=== PATIENT | female | born 1955 | race Caucasian/White ===

== ENCOUNTER 2017-07-25 08:55 | Inpatient (IN) | payer OTHER ==
[2017-07-25 10:09] LABS: BASO % 0 % (0-3); EOS % 0 % (0-3); HEMATOCRIT 41.2 % (36.0-47.0); HEMOGLOBIN 13.3 g/dL (12.0-15.5); LYMPH # 1.1 x10^3/uL (1.0-4.8); LYMPH % 9 % (24-48); MEAN CORPUSCULAR HEMOGLOBIN 30 pg (25-35); MEAN CORPUSCULAR HGB CONC 32 g/dL (31-37); MEAN CORPUSCULAR VOLUME 92 fL (79-100); MONO # 0.5 x10^3/uL (0.0-1.1); MONO % 4 % (0-9); NEUT # 10.9 x10^3uL (1.8-7.7); NEUT % 87 % (31-73); PLATELET COUNT 228 x10^3/uL (140-400); RED BLOOD COUNT 4.48 x10^6/uL (3.50-5.40); RED CELL DISTRIBUTION WIDTH 13.6 % (11.5-14.5); WHITE BLOOD COUNT 12.6 x10^3/uL (4.0-11.0)
[2017-07-25 10:10] LABS: BILIRUBIN,URINE NEGATIVE (NEG); COLOR,URINE ORANGE; GLUCOSE,URINE NEGATIVE (NEG); NITRITE,URINE POSITIVE (NEG); PH,URINE 6.5; PROTEIN,URINE NEGATIVE (NEG-TRACE)
[2017-07-25 10:12] LABS: ADD MAN DIFF? YES
[2017-07-25 10:17] LABS: CLARITY,URINE HAZY
[2017-07-25 10:19] LABS: BACTERIA,URINE MANY /HPF (0-FEW); SQUAMOUS EPITHELIAL CELL,UR MOD /LPF
[2017-07-25 10:20] LABS: WBC,URINE >40 /HPF (0-4)
[2017-07-25] MEDS: IV NORMAL SALINE 1000ML BAG 1,000 ML IV ×3 (10:23→20:59)
[2017-07-25] MEDS: ONDANSETRON PF 4 MG/2 ML VIAL. IV ×2 (10:23→20:58)
[2017-07-25] MEDS: KETOROLAC 30 MG/ML INJ. IV (10:25)
[2017-07-25] MEDS: MORPHINE SULFATE 4 MG/ML DISP.SYRIN. IV/SQ (10:26)
[2017-07-25] MEDS: 0.9 % SODIUM CHLORIDE 10 ML DISP.SYRIN. IV (10:28)
[2017-07-25 10:56] LABS: % BANDS 3 % (0-9); % LYMPHS 7 % (24-48); % MONOS 3 % (0-10); % SEGS 87 % (35-66); PLT ESTIMATE ADEQUATE (ADEQUATE)
[2017-07-25 11:08] LABS: TROPONINI < 0.017 ng/mL (0.000-0.055)
[2017-07-25 11:12] LABS: CKMB MASS < 0.5 ng/mL (0.0-3.6); CREATINE KINASE 86 U/L (26-192)
[2017-07-25 11:21] LABS: ANION GAP 9 (6-14); BLOOD UREA NITROGEN 14 mg/dL (7-20); CALCIUM 8.3 mg/dL (8.5-10.1); CARBON DIOXIDE 28 mmol/L (21-32); CHLORIDE 102 mmol/L (98-107); CREATININE 0.9 mg/dL (0.6-1.0); GFR 63.2; GLUCOSE 118 mg/dL (70-99); POTASSIUM 4.5 mmol/L (3.5-5.1); SODIUM 139 mmol/L (136-145)
[2017-07-25 11:27] LABS: ALBUMIN 3.5 g/dL (3.4-5.0); ALK PHOS 84 U/L (46-116); ALT (SGPT) 24 U/L (14-59); AST (SGOT) 16 U/L (15-37); DIRECT BILIRUBIN 0.2 mg/dL (0.0-0.2); LIPASE 55 U/L (73-393); TOTAL BILIRUBIN 0.8 mg/dL (0.2-1.0); TOTAL PROTEIN 7.2 g/dL (6.4-8.2)
[2017-07-25] MEDS: ACETAMINOPHEN 325 MG TABLET. PO ×2 (14:16→20:58)
[2017-07-25] MEDS ORDERED: INFLUENZA VAX SCREEN BY RX. MC (15:00)
[2017-07-25] MEDS: FLU VACC QS2017-18 (36MOS+)/PF 0.5 ML SYRINGE. VAX IM (16:00)
[2017-07-25] MEDS: MORPHINE SULFATE 4 MG/ML DISP.SYRIN. IV (16:19)
[2017-07-25] MEDS: TAMSULOSIN 0.4 MG CAP.ER.24H. PO (20:58)
[2017-07-26] MEDS: IV NORMAL SALINE 1000ML BAG 1,000 ML IV (03:05)
[2017-07-26] MEDS: ACETAMINOPHEN 325 MG TABLET. PO (07:06)
[2017-07-26] MEDS: ONDANSETRON PF 4 MG/2 ML VIAL. IV (07:06)
[2017-07-26] MEDS ORDERED: fentaNYL PF VIAL 100 MCG/2 ML VIAL ×3 (10:15→10:54)
[2017-07-26] MEDS ORDERED: HYDROmorphone 2 MG/ML VIAL IV (10:30)
[2017-07-26] MEDS ORDERED: MORPHINE SULFATE 2 MG/ML DISP.SYRIN. IV (10:30)
[2017-07-26] MEDS ORDERED: LIDOCAINE 1% PF 2 ML VIAL. ID (10:30)
[2017-07-26] MEDS ORDERED: ONDANSETRON PF 4 MG/2 ML VIAL. IV (10:30)
[2017-07-26] MEDS ORDERED: fentaNYL PF VIAL 100 MCG/2 ML VIAL IV (10:30)
[2017-07-26] MEDS ORDERED: PROCHLORPERAZINE 10 MG/2 ML VIAL. IV (10:30)
[2017-07-26] MEDS: fentaNYL PF VIAL 100 MCG/2 ML VIAL IV (10:48)
[2017-07-26] MEDS: IV RINGERS,LACTATED 1000ML 1,000 ML IV (10:52)
[2017-07-26] MEDS ORDERED: SUCCINYLCHOLINE 200 MG/10 ML VIAL. (10:54)
[2017-07-26] MEDS ORDERED: ONDANSETRON PF 4 MG/2 ML VIAL. (10:55)
[2017-07-26] MEDS ORDERED: PROPOFOL 20 ML IV (10:55)
[2017-07-26] MEDS ORDERED: DEXAMETHASONE SOD PHOS 20 MG/5 ML VIAL. (10:55)
[2017-07-26] MEDS ORDERED: LIDOCAINE 2% JELLY 6ML IN APPLICATOR. (10:56)
[2017-07-26] MEDS ORDERED: ePHEDrine PF IN SALINE 50 MG/5 ML DISP.SYRIN IV (11:26)
[2017-07-26] MEDS ORDERED: SEVOFLURANE 16 TO 30 MINUTES. IH (11:48)
[2017-07-26] MEDS: IOHEXOL 300 MG/ML 100ML VIAL. (12:55)
[2017-07-26] MEDS ORDERED: CEFEPIME HCL 1 GM in IV DEXTROSE 5% 50 ML IV (16:00)
[2017-07-26] MEDS: CEFEPIME HCL IV Push 1 GM VIAL. IVP ×2 (16:00→21:46)
[2017-07-26] MEDS: TAMSULOSIN 0.4 MG CAP.ER.24H. PO (21:46)
[2017-07-26] MEDS: NAPROXEN 500 MG TABLET PO (21:47)
[2017-07-26] MEDS: LACTOBACILLUS RHAMNOSUS GG 1 CAPSULE. PO (21:49)
[2017-07-27 04:36] LABS: ADD MAN DIFF? NO
[2017-07-27 04:47] LABS: BASO % 0 % (0-3); EOS % 0 % (0-3); HEMATOCRIT 34.8 % (36.0-47.0); HEMOGLOBIN 11.3 g/dL (12.0-15.5); LYMPH # 1.3 x10^3/uL (1.0-4.8); LYMPH % 14 % (24-48); MEAN CORPUSCULAR HEMOGLOBIN 30 pg (25-35); MEAN CORPUSCULAR HGB CONC 33 g/dL (31-37); MEAN CORPUSCULAR VOLUME 93 fL (79-100); MONO # 0.7 x10^3/uL (0.0-1.1); MONO % 8 % (0-9); NEUT # 7.4 x10^3uL (1.8-7.7); NEUT % 79 % (31-73); PLATELET COUNT 159 x10^3/uL (140-400); RED BLOOD COUNT 3.76 x10^6/uL (3.50-5.40); RED CELL DISTRIBUTION WIDTH 13.3 % (11.5-14.5); WHITE BLOOD COUNT 9.4 x10^3/uL (4.0-11.0)
[2017-07-27 05:04] LABS: ANION GAP 8 (6-14); BLOOD UREA NITROGEN 13 mg/dL (7-20); CALCIUM 8.4 mg/dL (8.5-10.1); CARBON DIOXIDE 26 mmol/L (21-32); CHLORIDE 105 mmol/L (98-107); CREATININE 0.8 mg/dL (0.6-1.0); GFR 72.4; GLUCOSE 143 mg/dL (70-99); POTASSIUM 3.9 mmol/L (3.5-5.1); SODIUM 139 mmol/L (136-145)
[2017-07-27] MEDS: CEFEPIME HCL IV Push 1 GM VIAL. IVP ×2 (06:33→13:12)
[2017-07-27] MEDS: ACETAMINOPHEN 325 MG TABLET. PO (08:52)
[2017-07-27] MEDS: LACTOBACILLUS RHAMNOSUS GG 1 CAPSULE. PO ×2 (08:52→21:43)
[2017-07-27] MEDS: OXYBUTYNIN CHLORIDE 5 MG TABLET PO (13:19)
[2017-07-27] MEDS: TAMSULOSIN 0.4 MG CAP.ER.24H. PO (21:44)
[2017-07-28] MEDS: ACETAMINOPHEN 325 MG TABLET. PO ×2 (02:19→14:32)
[2017-07-28] MEDS: LACTOBACILLUS RHAMNOSUS GG 1 CAPSULE. PO ×2 (08:16→20:38)
[2017-07-28] MEDS: ONDANSETRON ODT 4 MG TAB.RAPDIS. PO (08:27)
[2017-07-28] MEDS: OXYBUTYNIN CHLORIDE 5 MG TABLET PO (14:32)
[2017-07-28] MEDS: SERTRALINE 50 MG TABLET. PO (20:38)
[2017-07-28] MEDS: TAMSULOSIN 0.4 MG CAP.ER.24H. PO (20:38)
[2017-07-29] MEDS: ACETAMINOPHEN 325 MG TABLET. PO (06:03)
[2017-07-29] MEDS: LACTOBACILLUS RHAMNOSUS GG 1 CAPSULE. PO (09:34)
== END 2017-07-29 10:23 | disposition home or self-care (01) | DRG 872 ==
LOC: ER 08:55 → 6 SOUTH 11:30
PROC: 0T768DZ Dilation of Right Ureter with Intraluminal Device, Via Natural or Artificial Opening Endoscopic (ICD-10-PCS; principal; 2017-07-26 11:00)
PROC: BT161ZZ Fluoroscopy of Right Ureter using Low Osmolar Contrast (ICD-10-PCS; 2017-07-26 11:12)
DX: A41.89 Other specified sepsis (principal); E88.81 Metabolic syndrome and other insulin resistance; K76.0 Fatty (change of) liver, not elsewhere classified; E66.01 Morbid (severe) obesity due to excess calories; N13.6 Pyonephrosis; N39.0 Urinary tract infection, site not specified; Z68.41 Body mass index [BMI] 40.0-44.9, adult; I10 Essential (primary) hypertension; N13.9 Obstructive and reflux uropathy, unspecified; M19.90 Unspecified osteoarthritis, unspecified site; N28.82 Megaloureter; B96.1 Klebsiella pneumoniae [K. pneumoniae] as the cause of diseases classified elsewhere; J02.9 Acute pharyngitis, unspecified; M54.31 Sciatica, right side; K80.20 Calculus of gallbladder without cholecystitis without obstruction; K21.9 Gastro-esophageal reflux disease without esophagitis; E89.0 Postprocedural hypothyroidism; K57.30 Diverticulosis of large intestine without perforation or abscess without bleeding; Z87.891 Personal history of nicotine dependence; Z87.01 Personal history of pneumonia (recurrent)
CPT/HCPCS: 36415; 74176; 76000; 80048; 80076; 81001; 82553; 83605; 83690; 84484; 85007; 85025; 87040; 87086; 87186; 87205; 93005; 96361; 96374; 96375; 99285; 99285-25; C1769; C2617; J0330; J0690; J0692; J1100; J1885; J1956; J2270; J2405; J2704; J3010; J7030; J7120; Q0162; Q9967

== ENCOUNTER 2017-08-11 20:18 | Emergency (ER) | payer OTHER ==
[2017-08-11 20:49] LABS: BILIRUBIN,URINE NEGATIVE (NEG); CLARITY,URINE CLEAR; GLUCOSE,URINE NEGATIVE (NEG); NITRITE,URINE NEGATIVE (NEG); PROTEIN,URINE >=300 mg/dL (NEG-TRACE); UROBILINOGEN,URINE 0.2 mg/dL (0.2 mg/dL)
[2017-08-11 20:55] LABS: COLOR,URINE YELLOW
[2017-08-11 20:59] LABS: BACTERIA,URINE FEW /HPF (0-FEW); RBC,URINE >40 /HPF (0-2); SQUAMOUS EPITHELIAL CELL,UR FEW /LPF; WBC,URINE RARE /HPF (0-4)
[2017-08-11 21:03] LABS: ADD MAN DIFF? NO
[2017-08-11 21:07] LABS: BASO # 0.1 x10^3/uL (0.0-0.2); BASO % 1 % (0-3); EOS # 0.1 x10^3/uL (0.0-0.7); EOS % 1 % (0-3); HEMATOCRIT 38.7 % (36.0-47.0); HEMOGLOBIN 12.8 g/dL (12.0-15.5); LYMPH # 2.1 x10^3/uL (1.0-4.8); LYMPH % 20 % (24-48); MEAN CORPUSCULAR HEMOGLOBIN 30 pg (25-35); MEAN CORPUSCULAR HGB CONC 33 g/dL (31-37); MEAN CORPUSCULAR VOLUME 91 fL (79-100); MONO # 0.5 x10^3/uL (0.0-1.1); MONO % 4 % (0-9); NEUT # 7.6 x10^3uL (1.8-7.7); NEUT % 73 % (31-73); PLATELET COUNT 254 x10^3/uL (140-400); RED BLOOD COUNT 4.26 x10^6/uL (3.50-5.40); WHITE BLOOD COUNT 10.4 x10^3/uL (4.0-11.0)
[2017-08-11 21:18] LABS: ANION GAP 10 (6-14); BLOOD UREA NITROGEN 21 mg/dL (7-20); BUN/CREATININE RATIO 21 (6-20); CALCIUM 9.4 mg/dL (8.5-10.1); CARBON DIOXIDE 29 mmol/L (21-32); CHLORIDE 103 mmol/L (98-107); GLUCOSE 176 mg/dL (70-99); POTASSIUM 4.5 mmol/L (3.5-5.1); SODIUM 142 mmol/L (136-145)
[2017-08-11 21:23] LABS: ALBUMIN 3.6 g/dL (3.4-5.0); ALBUMIN/GLOBULIN RATIO 0.9 (1.0-1.7); ALK PHOS 92 U/L (46-116); ALT (SGPT) 23 U/L (14-59); AST (SGOT) 16 U/L (15-37); LIPASE 64 U/L (73-393); TOTAL BILIRUBIN 0.3 mg/dL (0.2-1.0); TOTAL PROTEIN 7.4 g/dL (6.4-8.2)
[2017-08-11] MEDS: ONDANSETRON PF 4 MG/2 ML VIAL. IV ×2 (22:09)
[2017-08-11] MEDS: IV NORMAL SALINE 1000ML BAG 1,000 ML IV ×2 (22:09)
[2017-08-11] MEDS: HYDROmorphone 2 MG/ML VIAL IV/SQ ×2 (22:10)
== END 2017-08-11 23:30 | disposition home or self-care (01) ==
LOC: ER 20:18
DX: R10.9 Unspecified abdominal pain (principal); I10 Essential (primary) hypertension; Z87.442 Personal history of urinary calculi; Z88.8 Allergy status to other drugs, medicaments and biological substances
CPT/HCPCS: 36415; 74176; 80053; 81001; 83690; 85025; 87086; 96361; 96374; 96375; 99285-25; J1170; J2405; J7030

== ENCOUNTER 2017-08-15 14:21 | Day surgery (SDC) | payer OTHER ==
[~2017-08-15 14:21] MED LIST: HYDROmorphone 2 MG/ML VIAL IV; LIDOCAINE 1% PF 2 ML VIAL. ID; LIDOCAINE 2% JELLY 6ML IN APPLICATOR.; MORPHINE SULFATE 2 MG/ML DISP.SYRIN. IV; ONDANSETRON PF 4 MG/2 ML VIAL. IV; ceFAZolin 2GM PREMIX 2 GM/50 ML BAG IV; fentaNYL PF VIAL 100 MCG/2 ML VIAL IV
[2017-08-15] MEDS: IV RINGERS,LACTATED 1000ML 1,000 ML IV ×4 (14:47→18:27)
[2017-08-15] MEDS ORDERED: PROPOFOL 20 ML IV ×2 (15:03)
[2017-08-15] MEDS ORDERED: LIDOCAINE 2% PF Vial for OR 5 ML VIAL. ×2 (15:03)
[2017-08-15] MEDS ORDERED: ONDANSETRON PF 4 MG/2 ML VIAL. ×2 (15:03)
[2017-08-15] MEDS ORDERED: MIDAZOLAM HCL/PF 2 MG/2 ML VIAL. ×2 (15:03)
[2017-08-15] MEDS ORDERED: DEXAMETHASONE SOD PHOS 20 MG/5 ML VIAL. ×2 (15:03)
[2017-08-15] MEDS ORDERED: fentaNYL PF VIAL 100 MCG/2 ML VIAL ×2 (16:36)
[2017-08-15] MEDS ORDERED: ePHEDrine PF IN SALINE 50 MG/5 ML DISP.SYRIN IV (16:42)
[2017-08-15] MEDS: IOHEXOL 300 MG/ML 100ML VIAL. ×2 (16:45)
[2017-08-15] MEDS: PROCHLORPERAZINE 10 MG/2 ML VIAL. IV ×4 (17:41→18:28)
[2017-08-15] MEDS: fentaNYL PF VIAL 100 MCG/2 ML VIAL IV ×8 (17:42→19:23)
[2017-08-15] MEDS: KETOROLAC 30 MG/ML INJ. IV ×2 (18:28)
[2017-08-15] MEDS: HYDROcodone/APAP 5/325MG 1 TAB TABLET PO ×2 (19:00)
[2017-08-15] MEDS ORDERED: HYDROcodone/APAP 5/325MG 1 TAB TABLET ×2 (19:01)
[2017-08-29 10:25] LABS: CA OXALATE MONOHYDR 95 % (.); COLOR Brown (.); STONE WEIGHT 44.6 mg (.)
== END 2017-08-15 20:05 | disposition home or self-care (01) ==
LOC: SURG 14:21
DX: N20.1 Calculus of ureter (principal); F32.9 Major depressive disorder, single episode, unspecified; Z98.890 Other specified postprocedural states; Z87.39 Personal history of other diseases of the musculoskeletal system and connective tissue; Z86.39 Personal history of other endocrine, nutritional and metabolic disease; Z86.69 Personal history of other diseases of the nervous system and sense organs; Z72.89 Other problems related to lifestyle; Z87.891 Personal history of nicotine dependence; Z91.048 Other nonmedicinal substance allergy status
CPT/HCPCS: 52353; 76000; 82365; C1769; J0690; J0780; J1100; J1885; J2250; J2405; J2704; J3010; Q9967

== ENCOUNTER 2017-08-19 11:12 | Inpatient (IN) | payer OTHER ==
[2017-08-19 12:05] LABS: BILIRUBIN,URINE NEGATIVE (NEG); CLARITY,URINE CLEAR; COLOR,URINE YELLOW; GLUCOSE,URINE NEGATIVE (NEG); NITRITE,URINE NEGATIVE (NEG); PROTEIN,URINE NEGATIVE (NEG-TRACE); UROBILINOGEN,URINE 0.2 mg/dL (0.2 mg/dL)
[2017-08-19] MEDS: ONDANSETRON PF 4 MG/2 ML VIAL. IV ×2 (12:10→16:41)
[2017-08-19] MEDS: IV NORMAL SALINE 1000ML BAG 1,000 ML IV (12:11)
[2017-08-19 12:14] LABS: ADD MAN DIFF? NO
[2017-08-19] MEDS: MORPHINE SULFATE 4 MG/ML DISP.SYRIN. IV/SQ ×2 (12:15→13:55)
[2017-08-19 12:21] LABS: BASO % 1 % (0-3); EOS # 0.1 x10^3/uL (0.0-0.7); EOS % 1 % (0-3); HEMATOCRIT 40.7 % (36.0-47.0); HEMOGLOBIN 13.8 g/dL (12.0-15.5); LYMPH # 1.7 x10^3/uL (1.0-4.8); LYMPH % 22 % (24-48); MEAN CORPUSCULAR HEMOGLOBIN 31 pg (25-35); MEAN CORPUSCULAR HGB CONC 34 g/dL (31-37); MEAN CORPUSCULAR VOLUME 90 fL (79-100); MONO # 0.5 x10^3/uL (0.0-1.1); MONO % 7 % (0-9); NEUT # 5.6 x10^3uL (1.8-7.7); NEUT % 70 % (31-73); PLATELET COUNT 249 x10^3/uL (140-400); RED BLOOD COUNT 4.51 x10^6/uL (3.50-5.40); RED CELL DISTRIBUTION WIDTH 13.2 % (11.5-14.5)
[2017-08-19 12:22] LABS: BACTERIA,URINE 0 /HPF (0-FEW); RBC,URINE >40 /HPF (0-2); SQUAMOUS EPITHELIAL CELL,UR MOD /LPF
[2017-08-19 12:29] LABS: ANION GAP 7 (6-14); BLOOD UREA NITROGEN 27 mg/dL (7-20); CALCIUM 9.6 mg/dL (8.5-10.1); CARBON DIOXIDE 30 mmol/L (21-32); CHLORIDE 102 mmol/L (98-107); CREATININE 1.3 mg/dL (0.6-1.0); GFR 41.4; GLUCOSE 138 mg/dL (70-99); POTASSIUM 4.4 mmol/L (3.5-5.1); SODIUM 139 mmol/L (136-145)
[2017-08-19] MEDS ORDERED: HYDROmorphone 2 MG/ML VIAL (12:52)
[2017-08-19] MEDS: HYDROmorphone 2 MG/ML VIAL IVP (12:57)
[2017-08-19] MEDS: MORPHINE SULFATE 4 MG/ML DISP.SYRIN. IV (22:49)
[2017-08-20] MEDS: ACETAMINOPHEN 325 MG TABLET. PO ×2 (04:33→11:24)
[2017-08-20 04:56] LABS: ADD MAN DIFF? NO
[2017-08-20 05:01] LABS: BASO % 1 % (0-3); EOS # 0.2 x10^3/uL (0.0-0.7); EOS % 3 % (0-3); HEMATOCRIT 39.7 % (36.0-47.0); HEMOGLOBIN 13.3 g/dL (12.0-15.5); LYMPH # 1.9 x10^3/uL (1.0-4.8); LYMPH % 29 % (24-48); MEAN CORPUSCULAR HEMOGLOBIN 30 pg (25-35); MEAN CORPUSCULAR HGB CONC 33 g/dL (31-37); MEAN CORPUSCULAR VOLUME 91 fL (79-100); MONO # 0.5 x10^3/uL (0.0-1.1); MONO % 7 % (0-9); NEUT % 61 % (31-73); PLATELET COUNT 239 x10^3/uL (140-400); RED BLOOD COUNT 4.39 x10^6/uL (3.50-5.40); RED CELL DISTRIBUTION WIDTH 13.6 % (11.5-14.5); WHITE BLOOD COUNT 6.5 x10^3/uL (4.0-11.0)
[2017-08-20 05:52] LABS: ANION GAP 9 (6-14); BLOOD UREA NITROGEN 16 mg/dL (7-20); CALCIUM 9.3 mg/dL (8.5-10.1); CARBON DIOXIDE 29 mmol/L (21-32); CHLORIDE 103 mmol/L (98-107); CREATININE 0.9 mg/dL (0.6-1.0); GFR 63.2; GLUCOSE 96 mg/dL (70-99); POTASSIUM 4.2 mmol/L (3.5-5.1); SODIUM 141 mmol/L (136-145)
[2017-08-20] MEDS: TAMSULOSIN 0.4 MG CAP.ER.24H. PO (11:35)
[2017-08-20] MEDS: ONDANSETRON PF 4 MG/2 ML VIAL. IV (16:36)
[2017-08-20] MEDS: LACTOBACILLUS RHAMNOSUS GG 1 CAPSULE. PO (21:18)
[2017-08-20] MEDS: SERTRALINE 50 MG TABLET. PO (21:18)
[2017-08-21] MEDS: ACETAMINOPHEN 325 MG TABLET. PO ×2 (00:25→07:16)
[2017-08-21 04:34] LABS: ADD MAN DIFF? NO
[2017-08-21 04:40] LABS: BASO % 1 % (0-3); EOS # 0.1 x10^3/uL (0.0-0.7); EOS % 2 % (0-3); HEMATOCRIT 39.7 % (36.0-47.0); HEMOGLOBIN 13.4 g/dL (12.0-15.5); LYMPH # 2.3 x10^3/uL (1.0-4.8); LYMPH % 33 % (24-48); MEAN CORPUSCULAR HEMOGLOBIN 30 pg (25-35); MEAN CORPUSCULAR HGB CONC 34 g/dL (31-37); MEAN CORPUSCULAR VOLUME 90 fL (79-100); MONO # 0.5 x10^3/uL (0.0-1.1); MONO % 7 % (0-9); NEUT % 58 % (31-73); PLATELET COUNT 248 x10^3/uL (140-400); RED BLOOD COUNT 4.43 x10^6/uL (3.50-5.40); RED CELL DISTRIBUTION WIDTH 13.8 % (11.5-14.5)
[2017-08-21 05:00] LABS: ANION GAP 9 (6-14); BLOOD UREA NITROGEN 12 mg/dL (7-20); CALCIUM 9.1 mg/dL (8.5-10.1); CARBON DIOXIDE 28 mmol/L (21-32); CHLORIDE 102 mmol/L (98-107); GLUCOSE 96 mg/dL (70-99); POTASSIUM 3.8 mmol/L (3.5-5.1); SODIUM 139 mmol/L (136-145)
[2017-08-21] MEDS: LACTOBACILLUS RHAMNOSUS GG 1 CAPSULE. PO (08:46)
[2017-08-21] MEDS: TAMSULOSIN 0.4 MG CAP.ER.24H. PO (08:46)
[2017-08-21] MEDS: POLYETHYLENE GLYCOL 3350 17 GM PACKET. PO (12:36)
== END 2017-08-21 15:30 | disposition home or self-care (01) | DRG 694 ==
LOC: ER 11:12 → 6 SOUTH 13:00
DX: N13.30 Unspecified hydronephrosis (principal); Z68.41 Body mass index [BMI] 40.0-44.9, adult; E03.9 Hypothyroidism, unspecified; R79.89 Other specified abnormal findings of blood chemistry; K21.9 Gastro-esophageal reflux disease without esophagitis; K59.00 Constipation, unspecified; Z87.442 Personal history of urinary calculi; Z87.891 Personal history of nicotine dependence; E66.9 Obesity, unspecified; F32.9 Major depressive disorder, single episode, unspecified; M19.90 Unspecified osteoarthritis, unspecified site; Z88.8 Allergy status to other drugs, medicaments and biological substances
CPT/HCPCS: 36415; 74018; 76770; 80048; 81001; 85025; 87086; 96365; 96375; 96376; 99285-25; J0690; J1170; J2270; J2405; J7030

== ENCOUNTER → 2021-04-06 | Outpatient (CLI) | payer MEDICARE, OTHER ==
[2020-06-01 11:07] VITALS: BP 125/68
[~2021-04-06] MED LIST changes: +ACET500T68 PO; +DIPH25TA64 PO; +DOCU-148 PO; +HYDR-2761 PO; -HYDROmorphone 2 MG/ML VIAL IV; -LIDOCAINE 1% PF 2 ML VIAL. ID; -LIDOCAINE 2% JELLY 6ML IN APPLICATOR.; -MORPHINE SULFATE 2 MG/ML DISP.SYRIN. IV; +OMEG1CAP43 PO; +OMEP20CA16 PO; -ONDANSETRON PF 4 MG/2 ML VIAL. IV; +SERT-267 PO; +TAMS0.4C97 PO; -ceFAZolin 2GM PREMIX 2 GM/50 ML BAG IV; -fentaNYL PF VIAL 100 MCG/2 ML VIAL IV; +no home medications
--- NOTE | 2021-04-06 11:15 | KCIC ---
MR LUMBAR SPINE WO [id number] History: Reason: LUMBAR BACK PAIN AND SCIATICA / Spl. Instructions: / History: LBP into right hip an d leg for several months. NKI. Technique: Multiplanar, multi sequential MR imaging was performed of the lumbar spine. Comparison: None Findings: Grade 1 anterolisthesis L4 on L5. Normal vertebral body height. No acute fracture. Minimal degenerati ve endplate edema. Conus terminates at the normal location. No evidence of nerve root clumping. L1-L2: Right subarticular/foraminal disc protrusion. Right subarticular recess narrowing. Mild facet arthropathy. Mild right neuroforaminal narrowing. No left neuroforaminal narrowing. L2-L3: Broad-based disc bulge. Mild facet arthropathy. No canal narrowing. Subarticular recess narro wing. Mild bilateral neuroforaminal narrowing. L3-L4: Broad based disc bulge. Moderate facet arthropathy. Minimal canal narrowing. Subarticular rec ess narrowing. Moderate right and mild left neuroforaminal narrowing. L4-L5: Anterolisthesis. Disc bulge with annular fissure. Advanced facet arthropathy. No canal narrow ing. Mild subarticular recess narrowing. Mild bilateral neuroforaminal narrowing. L5-S1: Small disc bulge. Advanced facet arthropathy. No canal narrowing. Mild to moderate left and m ild right neuroforaminal narrowing. Impression: 1. Multilevel lumbar spondylosis. 2. Grade 1 anterolisthesis L4 on L5 due to advanced facet arthropathy. 3. Neuroforaminal narrowing most prominent right L3-L4 and left L5-S1. Electronically signed by: Olivier Castanon DO (04/06/2021 11:13 AM) [facility]
== END ==
LOC: KCIC MRI 09:52
PROVIDERS: ATTEND Physician Assistant
DX: M47.817 Spondylosis without myelopathy or radiculopathy, lumbosacral region (principal); M48.061 Spinal stenosis, lumbar region without neurogenic claudication; M51.27 Other intervertebral disc displacement, lumbosacral region; M54.32 Sciatica, left side
CPT/HCPCS: 72148